=== PATIENT | female | born 2000 | race Caucasian/White ===

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

== ENCOUNTER 2019-03-12 16:51 | Emergency (ER) | payer BC ==
[2019-03-12] MEDS ORDERED: IBUPROFEN 800 MG TABLET PO ONE (18:11)
[2019-03-12] MEDS ORDERED: DIPH/PERTUSS(ACELL)/TETANUS VAC/PF 0.5 ML SYR (>=10YO) IM ONE (18:15)
--- NOTE | 2019-03-12 18:33 | RADIOLOGY REPORT (SQ) ---
EXAM DESCRIPTION: FINGER LEFT COMPLETED DATE/TIME: 03/12/2019 6:23 pm REASON FOR STUDY: L 5th finger nail injury COMPARISON: None. EXAM PARAMETERS: NUMBER OF VIEWS: Three views. TECHNIQUE: AP, lateral and oblique radiographic images acquired of the left hand. LIMITATIONS: None. FINDINGS: MINERALIZATION: Normal. BONES: 5th digit distal phalanx tuft small avulsion fracture. No dislocation. No worrisome bone les ions. JOINTS: No effusion. SOFT TISSUES: No significant soft tissue swelling. No radiopaque foreign body. OTHER: No other significant finding. IMPRESSION: 5th digit distal phalanx tuft small avulsion fracture. TECHNICAL DOCUMENTATION: JOB ID: [id number] 2010 [employer]- All Rights Reserved Reading location - IP/workstation name: [email or web address]
[2019-03-12] MEDS ORDERED: CLINDAMYCIN HCL 150 MG CAPSULE PO ONE (18:43)
--- NOTE | 2019-03-12 19:18 | ER Document Report ---
HPI - HPI Patient complains to provider of: Finger injury Time Seen by Provider: 03/12/19 18:04 Onset: Last week Onset/Duration: Persistent Quality of pain: Achy Pain Level: 1 Context: Patient was wrestling around last week injuring her left fifth finger. Patient reinjured it a few days ago lifting the fingernail up. Patient states area only bled a small amount. Patient is here today with concerns that she may need to have the fingernail removed. Associated Symptoms: Other - Left fifth finger nail injury Exacerbated by: Movement Relieved by: Denies Similar symptoms previously: No Recently seen / treated by doctor: No - ROS ROS below otherwise negative: Yes Systems Reviewed and Negative: Yes All other systems reviewed and negative - CONSTITUTIONAL Constitutional: DENIES: Fever, Chills - GASTROINTESTINAL Gastrointestinal: DENIES: Nausea - REPRODUCTIVE Reproductive: DENIES: : - MUSCULOSKELETAL Musculoskeletal: REPORTS: Extremity pain - DERM Skin Color: Normal Skin Problems: None Past Medical History - General Information source: Patient - Social History Smoking Status: Current Every Day Smoker Frequency of alcohol use: Occasional Drug Abuse: None Lives with: Family Family History: Reviewed & Not Pertinent Patient has suicidal ideation: No Patient has homicidal ideation: No - Medical History Medical History: Negative Renal/ Medical History: Denies: Hx Peritoneal Dialysis Surgical Hx: Negative - Immunizations Immunizations up to date: Yes Hx Diphtheria, Pertussis, Tetanus Vaccination: Yes Vertical Provider Document - CONSTITUTIONAL Agree With Documented VS: Yes Exam Limitations: No Limitations General Appearance: WD/WN, No Apparent Distress - INFECTION CONTROL TRAVEL OUTSIDE OF THE [place] IN LAST 30 DAYS: No - HEENT HEENT: Atraumatic, Normocephalic - NECK Neck: Normal Inspection - RESPIRATORY Respiratory: Breath Sounds Normal, No Respiratory Distress - CARDIOVASCULAR Cardiovascular: Regular Rate, Regular Rhythm Pulses: Normal: Radial - MUSCULOSKELETAL/EXTREMETIES Musculoskeletal/Extremeties: MAEW, FROM, Tender - Tenderness to left fifth fingertip with partial nail avulsion. No laceration to the nailbed, no bleeding - NEURO Level of Consciousness: Awake, Alert, Appropriate Motor/Sensory: No Motor Deficit - DERM Integumentary: Warm, Dry Course - Re-evaluation Re-evalutation: 03/12/19 19:14 Finger cleansed with surgical scrub and saline, nail avulsion repaired with skin glue adhesive, finger splint was then applied. Patient tolerated well. - Vital Signs Vital signs: Temp Pulse Resp BP Pulse Ox 98.8 F 92 16 112/79 98 03/12/19 17:15 03/12/19 17:15 03/12/19 17:15 03/12/19 17:15 03/12/19 17:15 - Diagnostic Test Radiology reviewed: Image reviewed, Reports reviewed Procedures - Immobilization Left Finger 5th digit Pre-Proc Neuro Vasc Exam: Normal Immobilizer type: Finger splint (Static) Performed by: Provider Post-Proc Neuro Vasc Exam: Normal Alignment checked and good: Yes Discharge - Discharge Clinical Impression: Closed fracture of tuft of distal phalanx of finger, Nail avulsion Condition: Stable Disposition: HOME, SELF-CARE Instructions: Clindamycin ([facility]), Use of Aluu-Evp-Xosuttt Ibuprofen ([facility]), Temporary Splint ([facility]), Tuft Fracture of the Finger ([facility]) Additional Instructions: Return immediately for any new or worsening symptoms Followup with your primary care provider, call tomorrow to make a followup appointment Follow up with orthopedics for a recheck Prescriptions: Clindamycin HCl [Cleocin Hcl] 300 mg PO QID #16 capsule Referrals: GRAHAM BARROS FNP-C [Primary Care Provider] - Follow up as needed KODY CANDELARIO DO [ACTIVE STAFF] - Follow up as needed
[2019-03-12 19:27] VITALS: BP 108/60
== END 2019-03-12 19:36 | disposition home or self-care (01) ==
LOC: ER 16:51
DX: S62.637A Displaced fracture of distal phalanx of left little finger, initial encounter for closed fracture (principal); S61.307A Unspecified open wound of left little finger with damage to nail, initial encounter; X58.XXXA Exposure to other specified factors, initial encounter; Y93.72 Activity, wrestling; F17.200 Nicotine dependence, unspecified, uncomplicated
CPT/HCPCS: 90471; 90715; 99283

== ENCOUNTER → 2019-05-30 | Outpatient (CLI) | payer BC ==
--- NOTE | 2019-05-30 09:30 | WOMENS IMAGING REPORT ---
EXAM DESCRIPTION: TRANSVAGINAL ULTRASOUND COMPLETED DATE/TIME: 05/30/2019 8:14 am REASON FOR STUDY: R10.2 PELVIC AND PERINEAL PAIN R10.2 PELVIC AND PERINEAL PAIN COMPARISON: 03/20/2018. TECHNIQUE: Dynamic and static grayscale images acquired of the pelvis via transvaginal approach and recorded on PACS. Additional selected color Doppler and spectral images recorded. LIMITATIONS: None. FINDINGS: UTERUS: Normal contour and echotexture. ENDOMETRIAL STRIPE: There is an IUD in place ; the IUD is in proper position. CERVIX: No nabothian cysts. RIGHT OVARY AND DOPPLER: Normal size. No adnexal masses. Normal arterial vascular flow without eviden ce for torsion. LEFT OVARY AND DOPPLER: Normal size. No adnexal masses. Normal arterial vascular flow without evidenc e for torsion. FREE FLUID: Trace amount of free fluid in the cul-de-sac. OTHER: No other finding. MEASUREMENTS: UTERUS: 7.7 x 2.9 x 4.4 cm. ENDOMETRIAL STRIPE: 4.6 mm. RIGHT OVARY: 3 x 3 x 2.3 cm. LEFT OVARY: 2.7 x 2 x 2.7 cm. IMPRESSION: IUD in place and in proper position. Normal appearance of the uterus, endometrium, and ovaries. TECHNICAL DOCUMENTATION: JOB ID: [id number] [employer]- All Rights Reserved Rev Reading location - IP/workstation name: [email or web address]
== END ==
LOC: WI 07:32
PROVIDERS: ATTEND Nurse Practitioner Family
DX: R10.2 Pelvic and perineal pain (principal); Z30.431 Encounter for routine checking of intrauterine contraceptive device
CPT/HCPCS: 76830

== ENCOUNTER 2019-12-01 15:36 | Emergency (ER) | payer BC ==
[2019-12-01 16:42] LABS: APPEARANCE,URINE CLEAR; BILIRUBIN,URINE NEGATIVE (NEGATIVE); COLOR,URINE STRAW; GLUCOSE, URINE NEGATIVE (NEGATIVE); KETONES,URINE NEGATIVE (NEGATIVE); LEUKOCYTE ESTERASE,URINE NEGATIVE (NEGATIVE); NITRITE,URINE NEGATIVE (NEGATIVE); PROTEIN,URINE NEGATIVE (NEGATIVE); URINE SPECIFIC GRAVITY 1.004; UROBILINOGEN,URINE NEGATIVE mg/dL (<2.0)
--- NOTE | 2019-12-01 16:46 | ER Document Report ---
ED General - General Chief Complaint: Vaginal Bleeding Stated Complaint: VAGINAL BLEEDING IN Time Seen by Provider: 12/01/19 15:42 Primary Care Provider: GRAHAM BARROS FNP-C [Primary Care Provider] - Follow up as needed Mode of Arrival: Ambulatory Information source: Patient, Parent, Friend Notes: Patient is a 19-year-old female presenting to the emergency department chief complaint of spotting while . Patient states that it started this morn ing with cramping sensation. She states that it also was very minimal spotting and then later on in the morning became much more pronounced. Patient states she is 1 para 0 A0 last menstrual period was 29 October. TRAVEL OUTSIDE OF THE [place] IN LAST 30 DAYS: No - HPI Onset: This morning Onset/Duration: Gradual, Worse Quality of pain: Cramping Severity: Mild Pain Level: 1 Associated symptoms: None Exacerbated by: Denies Relieved by: Denies Similar symptoms previously: No Recently seen / treated by doctor: No - Related Data Allergies/Adverse Reactions: cephalexin [From Keflex] Allergy (Verified 09/25/16 21:30) sulfamethoxazole [From Bactrim] Allergy (Verified 09/25/16 21:30) trimethoprim [From Bactrim] Allergy (Verified 09/25/16 21:30) Past Medical History - General Information source: Patient, Parent - Social History Smoking Status: Current Every Day Smoker Cigarette use (# per day): Yes Chew tobacco use (# tins/day): No Smoking Education Provided: Yes Frequency of alcohol use: Occasional Drug Abuse: None Lives with: Spouse/Significant other Family History: Reviewed & Not Pertinent Patient has suicidal ideation: No Patient has homicidal ideation: No Renal/ Medical History: Denies: Hx Peritoneal Dialysis - Immunizations Immunizations up to date: Yes Hx Diphtheria, Pertussis, Tetanus Vaccination: Yes Review of Systems - Review of Systems Notes: REVIEW OF SYSTEMS: CONSTITUTIONAL : Denies fever, chills, or sweats. Denies recent illness. EENT: Denies eye, ear, throat, or mouth pain or symptoms. Denies nasal or sinus congestion. CARDIOVASCULAR: Denies chest pain. RESPIRATORY: Denies cough, cold, or chest congestion. Denies shortness of breath, difficulty breathing, or wheezing. GASTROINTESTINAL: Denies abdominal pain. Denies nausea, vomiting, or diarrhea. Denies constipation. GENITOURINARY: Per HPI MUSCULOSKELETAL: Denies neck or back pain or joint pain or swelling. SKIN: Denies rash or skin lesions. HEMATOLOGIC : Denies easy bruising or bleeding. NEUROLOGICAL: Denies altered mental status or loss of consciousness. Denies headache. Denies weakness or paralysis or loss of use of either side. Denies problems with gait or speech. Denies sensory or motor loss. PSYCHIATRIC: Denies suicidal or homicidal ideations 10 Systems are negative unless otherwise specified above Physical Exam - Vital signs Vitals: Temp Pulse Resp BP Pulse Ox 97.9 F 85 18 136/91 H 99 12/01/19 15:38 12/01/19 15:38 12/01/19 15:38 12/01/19 15:38 12/01/19 15:38 - Notes Notes: PHYSICAL EXAMINATION: GENERAL: Well-appearing, well-nourished and in no acute distress. HEAD: Atraumatic, normocephalic. EYES: Pupils equal round and reactive to light, extraocular movements intact, sclera anicteric, conjunctiva are normal. ENT: nares patent, oropharynx clear without exudates. Moist mucous membranes. NECK: Normal range of motion, supple without lymphadenopathy, no appreciable JVD LUNGS: Lungs clear to auscultation bilaterally and equal. No wheezes rales or rhonchi. HEART: Regular rate and rhythm without murmurs ABDOMEN: Soft, minimally tender, normal bowel sounds. No guarding, no rebound. No masses appreciated. Uterine fundus is not palpable EXTREMITIES: Active full range of motion, no pitting or edema. No cyanosis. 2+ pulses x4 NEUROLOGICAL: No focal neurological deficits. Moves all extremities spontaneously and on command. SKIN: Warm, Dry, and intact. Normal turgor, no rashes or lesions noted. Course - Re-evaluation Re-evalutation: 12/01/19 16:46 Blood work will be obtained urinalysis has been obtained patient has been to ultrasound currently waiting on results. 12/01/19 19:03 I was able to speak to [employer] neon sign erector Dr. Ann who agreed to come down and evaluate the patient. Subsequently she decided the patient had complete miscarriage. She is to follow-up in the office as needed or return to the emergency department for worsening symptoms. I have spoken with patient and family they are agreeable with discharge home at this time. 12/01/19 19:04 Patient is Rh+ RhoGam is not needed 12/01/19 19:04 - Vital Signs Vital signs: Temp Pulse Resp BP Pulse Ox 97.9 F 85 18 136/91 H 99 12/01/19 15:38 12/01/19 15:38 12/01/19 15:38 12/01/19 15:38 12/01/19 15:38 - Laboratory Result Diagrams: 12/01/19 16:47 12/01/19 16:47 Laboratory results interpreted by me: 12/01/19 16:02 Urine Blood MODERATE H Discharge - Discharge Clinical Impression: Miscarriage Condition: Stable Disposition: HOME, SELF-CARE Additional Instructions: Follow-up with [employer] as needed. Return to the emergency department for worsening symptoms. Forms: Return to Work Referrals: GRAHAM BARROS FNP-C [Primary Care Provider] - Follow up as needed
--- NOTE | 2019-12-01 17:03 | RADIOLOGY REPORT (SQ) ---
EXAM DESCRIPTION: U/S OB TRANSVAG W/DOPPLER COMPLETED DATE/TIME: 12/01/2019 4:43 pm REASON FOR STUDY: spotting bleeding COMPARISON: None. TECHNIQUE: Transvaginal static and realtime grayscale images acquired of the pelvis. Additional padmini cted spectral and color Doppler images recorded. All images stored on PACs. CLINICAL AGE: 5 weeks 2 days BHCG: Pending. LIMITATIONS: None. FINDINGS: UTERUS: No visualized intrauterine . RIGHT ADNEXA: Normal ovary with normal vascular flow. Probable corpus luteal cyst. No adnexal free fluid. No adnexal masses. LEFT ADNEXA: Normal ovary with normal vascular flow. No adnexal free fluid. Adjacent to the left ovary is a 1.7 x 1.8 x 1.8 cm complex appearing mass, which demonstrates intrins ic vascularity. 2.8 x 2.3 x 2.3 cm FREE FLUID: Small amount of free fluid within the pelvis. OTHER: No other significant finding. FREE FLUID: Small amount within the cul-de-sac. IMPRESSION: Nonvisualized intrauterine . Complex 1.8 cm vascular left adnexal mass adjacent to and separate from the left ovary, in which an e ctopic is of concern. TECHNICAL DOCUMENTATION: JOB ID: [id number] 2010 [employer]- All Rights Reserved Reading location - IP/workstation name: [email or web address]
[2019-12-01] MEDS ORDERED: ACETAMINOPHEN 325 MG TABLET PO ONE (17:33)
[2019-12-01 17:36] LABS: ABSOLUTE BASOPHILS # (AUTO) 0.1 10^3/uL (0.0-0.2); ABSOLUTE EOSINOPHILS # (AUTO) 0.1 10^3/uL (0.0-0.6); ABSOLUTE LYMPHOCYTES (AUTO) 2.4 10^3/uL (0.5-4.7); ABSOLUTE MONOCYTES (AUTO) 0.5 10^3/uL (0.1-1.4); ABSOLUTE NEUT (AUTO) 6.1 10^3/uL (1.7-8.2); BASOPHILS % (AUTO) 0.7 % (0-2); EOSINOPHILS % (AUTO) 1.6 % (0-6); HEMATOCRIT 43.4 % (36.0-47.0); LYMPHOCYTES % (AUTO) 25.5 % (13-45); MEAN CORPUSCULAR HEMOGLOBIN 31.4 pg (27.0-33.4); MEAN CORPUSCULAR HGB CONC 34.6 g/dL (32.0-36.0); MEAN CORPUSCULAR VOLUME 91 fl (80-97); MONOCYTES % (AUTO) 5.7 % (3-13); PLATELET COUNT 277 10^3/uL (150-450); RED BLOOD COUNT 4.79 10^6/uL (3.72-5.28); SEGMENTED NEUTROPHILS % (AUTO) 66.5 % (42-78); TOTAL CELLS COUNTED % (AUTO) 100 %; WHITE BLOOD COUNT 9.2 10^3/uL (4.0-10.5)
[2019-12-01 17:42] LABS: ALBUMIN 4.5 g/dL (3.5-5.0); ALKALINE PHOSPHATASE 56 U/L (38-126); ASPARTATE AMINO TRANSFERASE 27 U/L (14-36); BILIRUBIN,TOTAL 0.4 mg/dL (0.2-1.3); BLOOD UREA NITROGEN 10 mg/dL (7-20); CALCIUM 9.6 mg/dL (8.4-10.2); GLUCOSE 83 mg/dL (75-110); POTASSIUM 4.4 mmol/L (3.6-5.0); TOTAL PROTEIN 7.2 g/dL (6.3-8.2)
[2019-12-01 17:47] LABS: ANION GAP 7 (5-19); CARBON DIOXIDE 26 mmol/L (22-30); CHLORIDE 107 mmol/L (98-107)
[2019-12-01 19:20] VITALS: BP 113/65
--- NOTE | 2019-12-01 21:30 | PDOC CONSULTATION ---
Consultation Consult Date: 12/01/19 Attending physician:: LENO OBANDO Provider Consulted: ABDELRAHMAN HAMPTON Consult reason:: vaginal bleeding. abdominal cramping. abnormal US finding History of Present Illness Admission Date/PCP: GHAZAL CALHOUN Patient complains of: vaginal bleeding for 1-2 days, abdominal cramping/lower abdomen. Denies nausea, vomiting, dysuria, bowel changes. History of Present Illness: KIKA GARCIA is a 19 year old female Past Medical History Cardiac Medical History: Reports: None Pulmonary Medical History: Reports: None EENT Medical History: Reports: None Endocrine Medical History: Reports: None Renal/ Medical History: Reports: None GI Medical History: Reports: None Musculoskeltal Medical History: Reports: None Social History Lives with: Spouse/Significant other Smoking Status: Current Every Day Smoker Electronic Cigarette use?: No Family History Family History: Reviewed & Not Pertinent Parental Family History Reviewed: Yes Children Family History Reviewed: Yes Sibling(s) Family History Reviewed.: Yes Medication/Allergy Home Medications: Cephalexin Monohydrate [Keflex 500 mg Capsule] 500 mg PO QID #40 capsule 06/28/15 Sulfamethoxazole/Trimethoprim [Bactrim Ds Tablet] 2 each PO BID #40 tablet 06/28/15 Famotidine [Pepcid 20 mg Tablet] 20 mg PO DAILY #30 tablet 09/25/16 Loratadine [Claritin 10 mg Tablet] 10 mg PO DAILY #30 tablet 09/25/16 Amoxicillin/Potassium Clav [Augmentin 500-125 Tablet] 1 each PO BID #14 tablet 03/20/18 Fluconazole [Diflucan] 150 mg PO ONCE PRN #1 tablet 03/20/18 Phenazopyridine HCl [Pyridium 200 mg Tablet] 200 mg PO TID #15 tablet 03/20/18 Clindamycin HCl [Cleocin Hcl] 300 mg PO QID #16 capsule 03/12/19 Allergies/Adverse Reactions: cephalexin [From Keflex] Allergy (Verified 09/25/16 21:30) sulfamethoxazole [From Bactrim] Allergy (Verified 09/25/16 21:30) trimethoprim [From Bactrim] Allergy (Verified 09/25/16 21:30) Review of Systems Constitutional: ABSENT: chills, fever(s), headache(s), weight gain, weight loss Cardiovascular: ABSENT: chest pain, dyspnea on exertion, edema, orthropnea, palpitations Respiratory: ABSENT: cough, hemoptysis Gastrointestinal: ABSENT: abdominal pain, constipation, diarrhea, hematemesis, hematochezia, nausea, vomiting Genitourinary: ABSENT: dysuria Musculoskeletal: ABSENT: joint swelling Integumentary: ABSENT: rash, wounds Psychiatric: ABSENT: anxiety, depression, homidical ideation, suicidal ideation Endocrine: ABSENT: cold intolerance, heat intolerance, polydipsia, polyuria Hematologic/Lymphatic: ABSENT: easy bleeding, easy bruising Physical Exam - Physical Exam Vital Signs: Temp Pulse Resp BP Pulse Ox 98.7 F 74 16 113/65 100 12/01/19 19:19 12/01/19 19:19 12/01/19 19:19 12/01/19 19:19 12/01/19 19:19 Intake & Output 11/30/19 12/01/19 12/02/19 06:59 06:59 06:59 Weight 85.1 kg General appearance: PRESENT: no acute distress, cooperative Respiratory exam: PRESENT: clear to auscultation ramon Cardiovascular exam: PRESENT: RRR, +S1, +S2 Vascular exam: PRESENT: normal capillary refill GI/Abdominal exam: PRESENT: normal bowel sounds, soft Extremities exam: PRESENT: full ROM. ABSENT: calf tenderness, clubbing, pedal edema Neurological exam: PRESENT: altered, oriented to person, oriented to place, oriented to time Psychiatric exam: PRESENT: appropriate affect Skin exam: PRESENT: dry, warm - Gynecological Exam Labia: normal Urethra: normal Introitus: normal Vagina: normal - small amount of dark red to brown vaginal discharge Cervix: normal Cervix: normal Uterus: normal Adhexa: normal Result Laboratory Results: 12/01/19 16:47 12/01/19 16:47 12/01/19 12/01/19 12/01/19 16:02 16:47 16:47 WBC 9.2 RBC 4.79 Hgb 15.0 Hct 43.4 MCV 91 MCH 31.4 MCHC 34.6 RDW 13.0 Plt Count 277 Seg Neutrophils % 66.5 Sodium Potassium Chloride Carbon Dioxide Anion Gap BUN Creatinine Est GFR ( Amer) Glucose Calcium Total Bilirubin AST Alkaline Phosphatase Total Protein Albumin Lipase Urine Color STRAW Urine Appearance CLEAR Urine pH 7.0 Ur Specific [place] 1.004 Urine Protein NEGATIVE Urine Glucose (UA) NEGATIVE Urine Ketones NEGATIVE Urine Blood MODERATE H Urine Nitrite NEGATIVE Ur Leukocyte Esterase NEGATIVE Urine WBC (Auto) 2 Urine RBC (Auto) 0 Blood Type O POSITIVE 12/01/19 16:47 WBC RBC Hgb Hct MCV MCH MCHC RDW Plt Count Seg Neutrophils % Sodium 139.5 Potassium 4.4 Chloride 107 Carbon Dioxide 26 Anion Gap 7 BUN 10 Creatinine 0.61 Est GFR ( Amer) > 60 Glucose 83 Calcium 9.6 Total Bilirubin 0.4 AST 27 Alkaline Phosphatase 56 Total Protein 7.2 Albumin 4.5 Lipase 71.1 Urine Color Urine Appearance Urine pH Ur Specific [place] Urine Protein Urine Glucose (UA) Urine Ketones Urine Blood Urine Nitrite Ur Leukocyte Esterase Urine WBC (Auto) Urine RBC (Auto) Blood Type Impressions: Transvaginal US 12/01/19 15:42 IMPRESSION: Nonvisualized intrauterine . Complex 1.8 cm vascular left adnexal mass adjacent to and separate from the left ovary, in which an ectopic is of concern. Assessment & Plan - Diagnosis (1) Miscarriage Is this a current diagnosis for this admission?: Yes - Time Critical Time spent with patient: 15-24 minutes Anticipated discharge: Home Within: within 24 hours - Plan Summary Plan Summary: 19 yo G1 s/p miscarriage -VSS, afebrile -Pt had positive home preg test x2 and then confirmation of preg by PCP -Began spotting/bleeding 1-2 days ago and now only spotting -cramping abdominal pain -Labs today show quant HCG of 4.75--> negative -US showed no IUP but small finding left adnexa measuring 1.8 cm adjacent to left ovary. Concern initially for ectopic before negative test. Film reviewed. Questionable finding, especially in light of negative testing. No pain in this area. -Given history of bleeding and cramping. Likely SAB. Precautions given for bleeding, infection and increasing pain. -Discussed early SAB, causes, recovery and answered all questions. -RH positive -Recommend f/u in our office in a week for repeat UPT and US as indicated.
== END 2019-12-01 19:47 | disposition home or self-care (01) ==
LOC: ER 15:36
DX: O03.9 Complete or unspecified spontaneous abortion without complication (principal); F17.210 Nicotine dependence, cigarettes, uncomplicated; Z88.1 Allergy status to other antibiotic agents
CPT/HCPCS: 36415; 76817; 80053; 81001; 83690; 84702; 85025; 86900; 86901; 93976; 99284

== ENCOUNTER 2020-07-29 09:32 | Emergency (ER) | payer SELFPAY ==
[2020-07-29 09:38] VITALS: BP 131/71
--- NOTE | 2020-07-29 14:14 | ER Document Report ---
HPI - HPI Time Seen by Provider: 07/29/20 13:20 Pain Level: 1 Notes: 20-year-old female patient presents the emergency department concern for possible abscess to her right axillary area. Patient reports she first noticed this yesterday. She does not have any history of any abscesses to this area previously. She states she is not sure if it is an abscess or an enlarged lymph node. Patient reports she just took a home test which was positive. She thinks she may be about 4 weeks . If she is she is a 2 para 0. She reports she had a miscarriage about 6 months ago. - ROS Systems Reviewed and Negative: Yes All other systems reviewed and negative - REPRODUCTIVE LMP: 06/30/20 Reproductive: REPORTS: : - DERM Notes: tender nonerythemous nodule R axillary Past Medical History - General Information source: Patient - Social History Smoking Status: Current Every Day Smoker Frequency of alcohol use: None Drug Abuse: None Family History: Reviewed & Not Pertinent - Medical History Medical History: Negative Renal/ Medical History: Denies: Hx Peritoneal Dialysis Surgical Hx: Negative - Immunizations Immunizations up to date: Yes Hx Diphtheria, Pertussis, Tetanus Vaccination: Yes Vertical Provider Document - CONSTITUTIONAL Notes: PHYSICAL EXAMINATION: GENERAL: Well-appearing, well-nourished and in no acute distress. HEAD: Atraumatic, normocephalic. EYES: Pupils equal round extraocular movements intact, conjunctiva are normal. ENT: Nares patent NECK: Normal range of motion LUNGS: No respiratory distress Musculoskeletal: Normal range of motion NEUROLOGICAL: Normal speech, normal gait. PSYCH: Normal mood, normal affect. SKIN: Palpable nodule noted to right axillary area. This is tender with deep palpation, no erythema, no fluctuance or induration. - INFECTION CONTROL TRAVEL OUTSIDE OF THE [place] IN LAST 30 DAYS: No Course - Re-evaluation Re-evalutation: Area of concern to right axillary area most consistent with lymphadenopathy. I do not suspect there is an abscess to this area. She is requesting confirmation of . - Vital Signs Vital signs: Temp Pulse Resp BP Pulse Ox 98.3 F 93 16 131/71 H 100 07/29/20 09:36 07/29/20 09:36 07/29/20 09:36 07/29/20 09:36 07/29/20 09:36 Discharge - Discharge Clinical Impression: Positive test Condition: Stable Disposition: HOME, SELF-CARE Additional Instructions: Your blood/serum test today was positive. I have printed a copy of this for you in your discharge packet. As we discussed I do not think the swollen area under your armpit is an abscess. I do believe it is a lymph node. You can try applying some warm compresses to it and if it is an abscess that should help bring it to ahead. Please return with any new or worsening concerns. Forms: Special Work Note, Return to Work Referrals: GRAHAM BARROS FNP-C [Primary Care Provider] - Follow up as needed
--- OUTSIDE RECORDS SUMMARY | 2020-07-29 16:05 | XMS REPORT ---
:2000 Author Organization [facility] Address [facility] [place] [address] [place] [id number] Care Team Providers Name Role Phone Unavailable Unavailable Unavailable Allergies, Adverse Reactions, Alerts This patient has no known allergies or adverse reactions. Medications This patient has no known medications. Problems This patient has no known problems. Procedures This patient has no known procedures. Results Test Description Test Time Test Comments Text Results Atomic Results Result Comments Urine \S\ 2019-11-28 09:30:00 Test Item Value Reference Range Comments Urine (test code = URINEPREG) Positive N/A BV/VAGINITIS PANEL DNA [id number] 14:42:00SEE NOTEUrine \S\ 2019-05-28 13:30:00 Test Item Value Reference Range Comments Urine (test code = URINEPREG) Negative N/A Rapid Strep\S\2019-01-02 15:15:00 Test Item Value Reference Range Comments Rapid Strep (test code = RAPIDSTREP) negative N/A BV/VAGINITIS PANEL DNA [id number] 17:00:00SEE NOTERapid Strep\S\2018-03-31 16:00:00 Test Item Value Reference Range Comments Rapid Strep (test code = RAPIDSTREP) negative N/A Rapid Strep\S\2018-02-10 09:45:00 Test Item Value Reference Range Comments Rapid Strep (test code = RAPIDSTREP) positive N/A Rapid Strep\S\2018-02-02 15:15:00 Test Item Value Reference Range Comments Rapid Strep (test code = RAPIDSTREP) Positive N/A Urine \S\2017-12-16 10:00:00 Test Item Value Reference Range Comments Urine (test code = URINEPREG) negative N/A C. trachomatis/N.gonorrhoeae [id number] 14:24:00 Test Item Value Reference Range Comments Neisseria gonorrhoeae RNA (test code = 920190) NOT DETECTED Chlamydia trachomatis RNA (test code = 088865) NOT DETECTED Urinalysis, [id number] 14:23:00 Test Item Value Reference Range Comments Nitrite (test code = 506160) NEGATIVE NEGATIVE Color (test code = 950873) YELLOW YELLOW Squamous Epithelial (test code = 903150) 6-10 HPF <=5 Nitrite (test code = 5123472) NEGATIVE NEGATIVE pH (test code = 633204) 5.5 5.0-8.0 Glucose (test code = 639958) NEGATIVE NEGATIVE Casts (test code = 918060) NONE SEEN LPF NONE SEEN Protein (test code = 754734) NEGATIVE NEGATIVE Specific [place] (test code = 978041) 1.015 1.001-1.03 5 Leukocyte Esterase (test code = 875079) 1+ NEGATIVE WBC (test code = 904665) 0-5 WBC/HPF <=5 Color (test code = 30302341) YELLOW YELLOW Crystals (test code = 183644) See Below HPF NONE SEEN Bilirubin (test code = 105623) NEGATIVE NEGATIVE Ketone (test code = 493885) NEGATIVE NEGATIVE Appearance (test code = 571824) CLEAR CLEAR RBC (test code = 425088) NONE SEEN RBC/HPF <=2 Bilirubin (test code = 54234456) NEGATIVE NEGATIVE Yeast (test code = 13039818) NONE SEEN HPF NONE SEEN Occult Blood (test code = 390352) NEGATIVE NEGATIVE Glucose (test code = 33955772) NEGATIVE NEGATIVE Ketone (test code = 37322895) NEGATIVE NEGATIVE Protein (test code = 29330722) NEGATIVE NEGATIVE Appearance (test code = 90860268) CLEAR CLEAR Bacteria (test code = 422279) FEW HPF NONE SEEN Leukocyte Esterase (test code = 15421836) 1+ NEGATI VE Occult Blood (test code = 19295781) NEGATIVE NEGATIVE Urine \S\2017-10-24 14:15:00 Test Item Value Reference Range Comments Urine (test code = URINEPREG) negative N/A Urine \S\2017-09-06 15:10:00 Test Item Value Reference Range Comments Urine (test code = URINEPREG) negative N/A Social History This patient has no known social history. Vital Signs This patient has no known vital signs.
== END 2020-07-29 15:24 | disposition home or self-care (01) ==
LOC: ER 09:32
DX: O99.711 Diseases of the skin and subcutaneous tissue complicating pregnancy, first trimester (principal); L98.9 Disorder of the skin and subcutaneous tissue, unspecified; O99.331 Smoking (tobacco) complicating pregnancy, first trimester; F17.200 Nicotine dependence, unspecified, uncomplicated; Z3A.01 Less than 8 weeks gestation of pregnancy
CPT/HCPCS: 36415; 84703; 99283

== ENCOUNTER 2020-08-15 22:30 | Emergency (ER) | payer MEDICAID ==
--- NOTE | 2020-08-15 23:27 | ER Document Report ---
ED GI/ - General Chief Complaint: Vaginal Bleeding Stated Complaint: VAGINAL BLEEDING Time Seen by Provider: 08/15/20 23:17 Primary Care Provider: [facility] [Provider Group] - 08/18/20 Notes: Patient is a 20-year-old female that comes emergency department for chief complaint of lower abdominal cramping and vaginal bleeding that started a few hours prior to arrival. She reports bleeding is light, she is not soaking through pads or passing clots. She denies current pain. She is G2, P0 at approximately 5.5 weeks gestation by first trimester ultrasound around a week ago. She denies injury, fever, dysuria, vaginal discharge, or any other complaints. She is on Wellbutrin and vitamins. She denies any medical history other than first termination miscarriage with her first . TRAVEL OUTSIDE OF THE [place] IN LAST 30 DAYS: No - Related Data Allergies/Adverse Reactions: cephalexin [From Keflex] Allergy (Verified 09/25/16 21:30) sulfamethoxazole [From Bactrim] Allergy (Verified 09/25/16 21:30) trimethoprim [From Bactrim] Allergy (Verified 09/25/16 21:30) Home Medications: wellbutrin. vitamins. tylenol Past Medical History - General Information source: Patient - Social History Smoking Status: Current Every Day Smoker Smoking Education Provided: Yes - <3 min Frequency of alcohol use: None Drug Abuse: None Lives with: Family Family History: Reviewed & Not Pertinent Renal/ Medical History: Denies: Hx Peritoneal Dialysis Surgical Hx: Negative - Immunizations Immunizations up to date: Yes Hx Diphtheria, Pertussis, Tetanus Vaccination: Yes Review of Systems - Review of Systems Constitutional: No symptoms reported EENT: No symptoms reported Cardiovascular: No symptoms reported Respiratory: No symptoms reported Gastrointestinal: No symptoms reported Genitourinary: No symptoms reported Female Genitourinary: See HPI Musculoskeletal: No symptoms reported Skin: No symptoms reported Hematologic/Lymphatic: No symptoms reported Neurological/Psychological: No symptoms reported Physical Exam - Vital signs Vitals: Temp Pulse Resp BP Pulse Ox 99 F 91 18 131/65 H 99 08/15/20 22:49 08/15/20 22:49 08/15/20 22:49 08/15/20 22:49 08/15/20 22:49 - Notes Notes: GENERAL: Alert, interacts well. No acute distress. HEAD: Normocephalic, atraumatic. EYES: Pupils equal, round, and reactive to light. Extraocular movements intact. ENT: Oral mucosa moist, tongue midline. Oropharynx unremarkable. Airway patent. NECK: Full range of motion. Supple. Trachea midline. No lymphadenopathy. LUNGS: Clear to auscultation bilaterally, no wheezes, rales, or rhonchi. No respiratory distress. Non-tender chest wall. HEART: Regular rate and rhythm. No murmur ABDOMEN: Soft, non-tender. Non-distended. EXTREMITIES: Moves all 4 extremities spontaneously. No edema, normal radial and dorsalis pedis pulses bilaterally. No cyanosis. BACK: no cervical, thoracic, lumbar midline tenderness. No saddle anesthesia, normal distal neurovascular exam. Moves all extremities in full range of motion. NEUROLOGICAL: Alert and oriented x3. Normal speech. Cranial nerves II through XII grossly intact. Strength 5/5 in all extremities. PSYCH: Normal affect, normal mood. SKIN: Warm, dry, normal turgor. No rashes or lesions noted. Course - Re-evaluation Re-evalutation: Patient is alert, smiling, well-appearing, playing on her phone. Soft benign abdomen. No current complaints. Unremarkable vital signs. CBC, chemistry, urinalysis reviewed and unremarkable. hCG is greater than 2700. RhoGam is not indicated with the positive blood type. Ultrasound showing irregular appearance of suspected intrauterine gestation, could be failed in trauterine , could be bleeding around the gestation, recommendation is close monitoring. I discussed with patient. Discussed how this might be a developing miscarriage, however it was still early and this was not definitely, patient will have repeat hCG performed versus following up with [facility] on Tuesday, discussed expectations, possibilities, return precautions. Patient and significant other state appreciation and agreement. Stable and well-appearing at time of discharge. - Vital Signs Vital signs: Temp Pulse Resp BP Pulse Ox 98.3 F 91 16 102/53 L 100 08/16/20 01:30 08/16/20 01:30 08/16/20 01:30 08/16/20 01:30 08/16/20 01:30 - Laboratory Result Diagrams: 08/15/20 23:15 08/15/20 23:15 Laboratory results interpreted by me: 08/15/20 08/15/20 08/15/20 23:15 23:15 23:51 WBC 10.7 H Sodium 136.9 L Beta HCG, Quant 2742.60 H Urine Blood LARGE H Discharge - Discharge Clinical Impression: Vaginal bleeding affecting early Condition: Stable Disposition: HOME, SELF-CARE Additional Instructions: The ultrasound has an uncertain appearing in the uterus. I recommend either being seen by [facility] on Tuesday or having the repeat hCG prescribed Tuesday to help monitor this. I recommend pelvic rest (avoid significant physical activity such as lifting running, sexual intercourse, until cleared by [facility]). You can take Reglan if needed for nausea, Tylenol if needed for pain. Return for any concerning symptoms including very heavy bleeding, dizziness, pas sing out, severe pain, or any other concerning symptoms. Prescriptions: Metoclopramide HCl [Reglan] 5 mg PO ASDIR PRN #30 tablet PRN Reason: Forms: Return to Work, Follow-Up Laboratory Testing Referrals: [facility] [Provider Group] - 08/18/20
[2020-08-15 23:44] LABS: ABSOLUTE BASOPHILS # (AUTO) 0.1 10^3/uL (0.0-0.2); ABSOLUTE EOSINOPHILS # (AUTO) 0.2 10^3/uL (0.0-0.6); ABSOLUTE LYMPHOCYTES (AUTO) 2.6 10^3/uL (0.5-4.7); ABSOLUTE MONOCYTES (AUTO) 0.8 10^3/uL (0.1-1.4); BASOPHILS % (AUTO) 1.1 % (0-2); EOSINOPHILS % (AUTO) 1.6 % (0-6); HEMATOCRIT 39.9 % (36.0-47.0); HEMOGLOBIN 13.6 g/dL (12.0-15.5); LYMPHOCYTES % (AUTO) 24.6 % (13-45); MEAN CORPUSCULAR HEMOGLOBIN 30.7 pg (27.0-33.4); MEAN CORPUSCULAR VOLUME 90 fl (80-97); MONOCYTES % (AUTO) 7.3 % (3-13); PLATELET COUNT 291 10^3/uL (150-450); RED BLOOD COUNT 4.42 10^6/uL (3.72-5.28); RED CELL DISTRIBUTION WIDTH 13.5 % (11.5-14.0); SEGMENTED NEUTROPHILS % (AUTO) 65.4 % (42-78); TOTAL CELLS COUNTED % (AUTO) 100 %; WHITE BLOOD COUNT 10.7 10^3/uL (4.0-10.5)
[2020-08-15 23:47] LABS: ALBUMIN 4.4 g/dL (3.5-5.0); ALKALINE PHOSPHATASE 64 U/L (38-126); ANION GAP 8 (5-19); ASPARTATE AMINO TRANSFERASE 22 U/L (14-36); BILIRUBIN,TOTAL 0.2 mg/dL (0.2-1.3); BLOOD UREA NITROGEN 11 mg/dL (7-20); CALCIUM 9.8 mg/dL (8.4-10.2); CARBON DIOXIDE 25 mmol/L (22-30); CHLORIDE 104 mmol/L (98-107); GLUCOSE 80 mg/dL (75-110); TOTAL PROTEIN 6.8 g/dL (6.3-8.2)
[2020-08-16 00:22] LABS: APPEARANCE,URINE CLEAR; BILIRUBIN,URINE NEGATIVE (NEGATIVE); COLOR,URINE STRAW; GLUCOSE, URINE NEGATIVE (NEGATIVE); KETONES,URINE NEGATIVE (NEGATIVE); LEUKOCYTE ESTERASE,URINE NEGATIVE (NEGATIVE); NITRITE,URINE NEGATIVE (NEGATIVE); PROTEIN,URINE NEGATIVE (NEGATIVE); URINE SPECIFIC GRAVITY 1.011; UROBILINOGEN,URINE NEGATIVE mg/dL (<2.0)
--- NOTE | 2020-08-16 00:54 | RADIOLOGY REPORT (SQ) ---
Ultrasound of the pelvis: 08/15/2020 11:51 PM [facility] HISTORY: 20-year-old patient with pelvic pain. TECHNIQUE: Multiple grayscale and color Doppler images of the pelvis were obtained transabdominally and transvaginally. COMPARISON: None available FINDINGS: The uterus measures 7.4 x 3.6 x 4.4 cm. The endometrium measures 9-10 mm in thickness. The cervix measures 2.4 cm in length. There is a single irregular hypoechoic area within the uterus. This does not have the normal shape of a gestational sac. No yolk sac is seen. No myometrial mass is seen. The right ovary measures 2.3 x 2.9 x 2.4 cm. The left ovary measures 3.5 x 2.9 x 2.4 cm. There is a probable physiologic cyst at the left ovary measuring up to 2.1 cm. Normal arterial waveforms were obtained from both ovaries. Trace free intraperitoneal fluid is seen within the posterior cul-de-sac. IMPRESSION: There is fluid or a very irregular gestational sac noted within the endometrial canal. This may represent a failed intrauterine or hemorrhage adjacent to a gestational sac. Close interval follow-up is recommended.
[2020-08-16 01:32] VITALS: BP 102/53
== END 2020-08-16 01:30 | disposition home or self-care (01) ==
LOC: ER 22:30
DX: O20.9 Hemorrhage in early pregnancy, unspecified (principal); O26.899 Other specified pregnancy related conditions, unspecified trimester; R10.2 Pelvic and perineal pain; O99.330 Smoking (tobacco) complicating pregnancy, unspecified trimester; F17.200 Nicotine dependence, unspecified, uncomplicated; Z67.90 Unspecified blood type, Rh positive; Z79.899 Other long term (current) drug therapy; Z88.1 Allergy status to other antibiotic agents; Z3A.00 Weeks of gestation of pregnancy not specified
CPT/HCPCS: 36415; 76817; 80053; 81001; 84702; 85025; 86900; 86901; 93976; 99284

== ENCOUNTER 2020-08-18 08:32 | Emergency (ER) | payer MEDICAID ==
--- NOTE | 2020-08-18 09:01 | ER Document Report ---
ED General - General Chief Complaint: Vaginal Bleeding Stated Complaint: VAGINAL BLEEDING Time Seen by Provider: 08/18/20 08:44 Primary Care Provider: GRAHAM BARROS FNP-C [Primary Care Provider] - Follow up as needed TRAVEL OUTSIDE OF THE [place] IN LAST 30 DAYS: No - HPI Notes: Patient is a 20-year-old female, G2, P0 at approximately 7 weeks gestation, who presents to the emergency department for evaluation. She was seen last week on Tuesday, had an ultrasound, which point her was measuring about a week behind. She came into the emergency department on Tuesday because she started bleeding. She had ultrasound and quad set of beta-hCG performed. She was told to follow-up today. She states that she continues to have a brown discharge, more with wiping. She has not required any pads. She has had no bright red bleeding. She denies any pain. She has had some nausea and vomiting throughout the entire . No fevers. - Related Data Allergies/Adverse Reactions: cephalexin [From Keflex] Allergy (Verified 09/25/16 21:30) sulfamethoxazole [From Bactrim] Allergy (Verified 09/25/16 21:30) trimethoprim [From Bactrim] Allergy (Verified 09/25/16 21:30) Home Medications: Wellbutrin, vitamins Past Medical History - General Information source: Patient - Social History Smoking Status: Current Every Day Smoker Family History: Reviewed & Not Pertinent Renal/ Medical History: Denies: Hx Peritoneal Dialysis Psychiatric Medical History: Reports: Hx Depression - Immunizations Immunizations up to date: Yes Hx Diphtheria, Pertussis, Tetanus Vaccination: Yes Review of Systems - Review of Systems Constitutional: No symptoms reported EENT: No symptoms reported Cardiovascular: No symptoms reported Respiratory: No symptoms reported Gastrointestinal: See HPI Genitourinary: No symptoms reported Female Genitourinary: See HPI Musculoskeletal: No symptoms reported Skin: No symptoms reported Neurological/Psychological: No symptoms reported Physical Exam - Vital signs Vitals: Temp Pulse Resp BP Pulse Ox 97.9 F 93 16 98/73 L 97 08/18/20 08:46 08/18/20 08:46 08/18/20 08:46 08/18/20 08:46 08/18/20 08:46 - Notes Notes: Vital signs reviewed, please refer to chart. Head is normocephalic, atraumatic. Pupils equal round, reactive to light. Neck is supple without meningismus. Heart is regular rate and rhythm. Lungs are clear to auscultation bilaterally. Abdomen is soft, nontender, normoactive bowel sounds throughout. Extremities without cyanosis, clubbing. Patient is awake alert, cooperative with examiner. Course - Re-evaluation Re-evalutation: 08/18/20 09:00 Patient presents to the emergency department for evaluation. I did review her visit history from her last visit. She had an irregular gestational sac, findings very concerning for miscarriage. Her quantitative beta was only 2742. Given how far along she was, I have a strong suspicion that this is in fact an incomplete miscarriage. I informed the patient of this finding. At any rate, we will repeat the ultrasound as well as the beta. Patient is currently stable, denies any needs. We will continue to monitor. 08/18/20 11:15 Patient's quantitative beta hCG is falling. Her ultrasound shows a gestational sac without clear pole. I do strongly suspect that this is in fact a missed AB. I spoke with Dr. Ann, on-call FIELD AIDE. She still recommends watchful waiting. Repeat ultrasound in a week, follow-up with OB at the health department or here at [facility]. I reviewed the patient's records, she is in fact Rh+. No sort of intervention as far as RhoGam is indicated. Patient is told to follow complete pelvic rest instructions. Follow-up with OB next week. Return to the emergency department with worsening or new concerning symptoms of any sort. - Vital Signs Vital signs: Temp Pulse Resp BP Pulse Ox 97.9 F 93 16 98/73 L 97 08/18/20 08:46 08/18/20 08:46 08/18/20 08:46 08/18/20 08:46 08/18/20 08:46 - Laboratory Laboratory results interpreted by me: 08/18/20 09:15 Beta HCG, Quant 2560.10 H - Diagnostic Test Radiology reviewed: Image reviewed, Reports reviewed Radiology results interpreted by me: 08/18/20 11:16 Obstetrics Ultrasound 08/18/20 08:52 IMPRESSION: POSSIBLE EARLY INTRAUTERINE . BHCG LEVEL NOT AVAILABLE FOR CORRELATION WITH US FINDINGS. CONSIDER F/U BHCG AND/OR ULTRASOUND FOR VERIFICATION AND TO EXCLUDE ECTOPIC . Trimester of : First trimester - 0 to 13 weeks. Discharge - Discharge Clinical Impression: Incomplete miscarriage Condition: Stable Disposition: HOME, SELF-CARE Instructions: Miscarriage Impending ([facility]), Threatened Miscarriage ([facility]) Additional Instructions: Your quantitative beta-hCG has fallen. OB recommends repeat ultrasound in 1 week. He can either follow-up with the health department or OB here. Otherwise pelvic rest as discussed. Zofran as needed for nausea, Tylenol as needed for pain. Return to the emergency department for worsening or new concerning symptoms of any sort. Forms: Return to Work Referrals: GRAHAM BARROS FNP-C [Primary Care Provider] - Follow up as needed
[2020-08-18] MEDS ORDERED: ONDANSETRON 4 MG TAB.RAPDIS PO ONE (09:02)
--- NOTE | 2020-08-18 10:38 | RADIOLOGY REPORT (SQ) ---
EXAM DESCRIPTION: U/S OB TRANSVAGINAL W/O DOP IMAGES COMPLETED DATE/TIME: 08/18/2020 10:03 am REASON FOR STUDY: follow up, low HCG COMPARISON: None. TECHNIQUE: Transvaginal static and realtime grayscale images acquired of the pelvis. Additional padmini cted spectral and color Doppler images recorded. All images stored on PACs. CLINICAL AGE: 7 week 0 days. bHCG: Not available. LIMITATIONS: None. FINDINGS: UTERUS: No masses. No anomalies. GESTATIONAL SAC: Normal shape. YOLK SAC: Not visualized. POLE: None present. RIGHT ADNEXA: Normal ovary with normal vascular flow. No adnexal free fluid. No adnexal masses. LEFT ADNEXA: Normal ovary with normal vascular flow. No adnexal free fluid. No adnexal masses. FREE FLUID: None. OTHER: No other significant finding. IMPRESSION: POSSIBLE EARLY INTRAUTERINE . BHCG LEVEL NOT AVAILABLE FOR CORRELATION WITH US FINDINGS. CONSIDER F/U BHCG AND/OR ULTRASOUND FOR VERIFICATION AND TO EXCLUDE ECTOPIC . Trimester of : First trimester - 0 to 13 weeks. TECHNICAL DOCUMENTATION: JOB ID: [id number] 2010 [employer] All Rights Reserved Reading location - IP/workstation name: [email or web address]
[2020-08-18 11:33] VITALS: BP 105/52
== END 2020-08-18 11:33 | disposition home or self-care (01) ==
LOC: ER 08:32
DX: O03.4 Incomplete spontaneous abortion without complication (principal); O46.91 Antepartum hemorrhage, unspecified, first trimester; Z3A.01 Less than 8 weeks gestation of pregnancy; Z88.1 Allergy status to other antibiotic agents; Z88.2 Allergy status to sulfonamides; Z88.8 Allergy status to other drugs, medicaments and biological substances; Z79.899 Other long term (current) drug therapy; F17.200 Nicotine dependence, unspecified, uncomplicated
CPT/HCPCS: 99284; 36415; 84702; 76817; S0119